=== PATIENT | female | born 1985 | race Hispanic/Latino ===

== ENCOUNTER 2019-09-10 21:24 | Emergency (ER) | payer MEDICAID ==
[2019-09-10] MEDS ORDERED: KETOROLAC TROMETHAMINE 30MG/ML ONE (21:40)
== END 2019-09-10 21:53 | disposition home or self-care (01) ==
LOC: EDH 21:24
DX: K02.9 Dental caries, unspecified (principal); Z90.49 Acquired absence of other specified parts of digestive tract; Z98.890 Other specified postprocedural states
CPT/HCPCS: 96372; 99283; J1885

== ENCOUNTER 2020-01-18 20:32 | Emergency (ER) | payer MEDICAID ==
[2020-01-18] MEDS ORDERED: KETOROLAC TROMETHAMINE 30MG/ML ONE (22:01)
[2020-01-18] MEDS ORDERED: DiphenhydrAMINE HCL 50 MG/ML VIAL ONE (23:18)
== END 2020-01-18 23:59 | disposition home or self-care (01) ==
LOC: EDH 20:32
DX: M54.5 Low back pain (principal); M25.511 Pain in right shoulder; Z98.890 Other specified postprocedural states; Z90.49 Acquired absence of other specified parts of digestive tract; V49.10XA Passenger injured in collision with unspecified motor vehicles in nontraffic accident, initial encounter; Y93.89 Activity, other specified; Y92.89 Other specified places as the place of occurrence of the external cause; Y99.8 Other external cause status
CPT/HCPCS: 72072; 72100; 73030; 96372 ×2; 99284; J1200; J1885